=== PATIENT | male | born 1995 | race Caucasian/White ===

== ENCOUNTER 2025-09-22 10:25 | Emergency (ER) | payer BC, OTHER ==
[2025-09-22] MEDS: Diphtheria,Pertussis(Acell),Tetanus Vaccine 0.5 ML Syringe IM ONE (10:55)
== END 2025-09-22 11:54 | disposition home or self-care (01) ==
LOC: JD.ED 10:25
DX: S61.411A Laceration without foreign body of right hand, initial encounter (principal); W45.8XXA Other foreign body or object entering through skin, initial encounter; Z23 Encounter for immunization
CPT/HCPCS: 12002; 90471; 90715; 99282; J2003; 99283